=== PATIENT | male | born 2005 | race Caucasian/White ===

== ENCOUNTER → 2025-01-30 08:47 | Outpatient (REF) | payer BC, SELFPAY | LOC: EMG 08:47 | PROVIDERS: ATTENDING PHYSICIAN Orthopaedic Surgery; FAMILY PHYSICIAN Nurse Practitioner Family | DX: M95.8 Other specified acquired deformities of musculoskeletal system (principal); R20.0 Anesthesia of skin | CPT/HCPCS: 95886; 95909 ==